=== PATIENT | female | born 1950 | race Caucasian/White ===

== ENCOUNTER 2017-11-21 12:46 | Emergency (ER) | payer MEDICARE, OTHER ==
[2017-11-21 12:57] VITALS: RESP 16
[2017-11-21 13:17] VITALS: O2SAT 98
--- NOTE | 2017-11-21 13:43 | ED PDOC ---
HPI: Back Time Seen by Provider: 11/21/17 13:18 Chief Complaint (Nursing): Shortness Of Breath Chief Complaint (Provider): Back pain History Per: Patient History/Exam Limitations: no limitations Onset/Duration Of Symptoms: Hrs (3am this morning) Current Symptoms Are (Timing): Still Present Quality Of Discomfort: "Pain" Previous Symptoms: None Associated Symptoms: None Exacerbating Factor(s): Movement, Other (deep breaths) Additional Complaint(s): Shantel Estrada is a 67 year old female, with a past medical history of diabetes and arthritis, who presents to the emergency department complaining of a constant back pain onset since 3am this morning. Patient states the pain worsens with deep breaths and movement. She denies similar symptoms in the past or heavy lifting. Patient doesn't work and denies any recent travel. She did not take pain medications. She denies any rash, leg pain or swelling. PMD: Leonid Schrader Past Medical History Reviewed: Historical Data, Nursing Documentation, Vital Signs Vital Signs: Last Vital Signs Temp 97.0 F L 11/21/17 12:54 Pulse 100 H 11/21/17 12:54 Resp 16 11/21/17 13:13 BP 135/68 11/21/17 12:54 Pulse Ox 98 11/21/17 13:13 - Medical History PMH: Arthritis, Diabetes, Gall Bladder Disease, HTN, Hypercholesterolemia, Hyperlipidemia Denies: Chronic Kidney Disease - Surgical History Surgical History: Cholecystectomy - Immunization History Hx Tetanus Toxoid Vaccination: No Hx Influenza Vaccination: Yes Hx Pneumococcal Vaccination: No - Home Medications Home Medications: Ambulatory Orders Medication Instructions Recorded Tizanidine Hydrochloride 4 mg PO Q6 PRN #20 tab 05/26/14 [Tizanidine HCl] traMADol [Ultram] 50 mg PO QID PRN #20 tab 05/26/14 diaZEpam [Valium] 5 mg PO Q6 PRN #10 tab 05/27/14 - Allergies Allergies/Adverse Reactions: Allergies Allergy/AdvReac Type Severity Reaction Status Date / Time No Known Allergies Allergy Verified 05/26/14 14:00 Review of Systems ROS Statement: Except As Marked, All Systems Reviewed And Found Negative Musculoskeletal: Positive for: Back Pain (worst with deep breaths and movement) . Negative for: Leg Pain (or swelling) Skin: Negative for: Rash Physical Exam - Reviewed Nursing Documentation Reviewed: Yes Vital Signs Reviewed: Yes - Physical Exam Appears: Positive for: Non-toxic Head Exam: Positive for: ATRAUMATIC, NORMAL INSPECTION, NORMOCEPHALIC Skin: Positive for: Normal Color, Warm, Dry Eye Exam: Positive for: Normal appearance Neck: Positive for: Painless ROM, Supple Cardiovascular/Chest: Positive for: Regular Rate, Rhythm. Negative for: Murmur Respiratory: Positive for: Normal Breath Sounds (clear b/l). Negative for: Respiratory Distress Gastrointestinal/Abdominal: Positive for: Normal Exam, Soft. Negative for: Tenderness, Guarding, Rebound Back: Positive for: Other (tender to palpation left upper back. No lesion.) Extremity: Positive for: Normal ROM. Negative for: Tenderness, Pedal Edema, Deformity, Swelling Neurologic/Psych: Positive for: Alert, Oriented. Negative for: Motor/Sensory Deficits - Laboratory Results Result Diagrams: 11/21/17 14:57 11/21/17 14:57 - ECG O2 Sat by Pulse Oximetry: 98 (RA) Pulse Ox Interpretation: Normal Medical Decision Making Medical Decision Making: Initial Impression: back pain Initial Plan: --EKG --CMP --CBC w/ differential --D Dimer --PTT --PT --Chest two views (PA/LAT) [RAD] --Urinalysis --Reevaluation 14:23 CXR FINDINGS: LUNGS: Minor bibasilar atelectasis. PLEURA: No significant pleural effusion identified. No pneumothorax apparent. CARDIOVASCULAR: Normal. OSSEOUS STRUCTURES: Mild multilevel degenerative spondylosis of the thoracic spine. VISUALIZED UPPER ABDOMEN: Metallic clips right upper quadrant of the abdomen consistent with prior cholecystectomy. OTHER FINDINGS: None. IMPRESSION: Minor bibasilar atelectasis. 16:30 --Patient will be signed out to Dr. Owens, pending repeat Troponin and CT angio chest Scribe Attestation: Documented by Mango Davalos, acting as a scribe for Violetta Clark MD Provider Scribe Attestation: All medical record entries made by the Scribe were at my direction and personally dictated by me. I have reviewed the chart and agree that the record accurately reflects my personal performance of the history, physical exam, medical decision making, and the department course for this patient. I have also personally directed, reviewed, and agree with the discharge instructions and disposition. Disposition - Disposition Forms: [employer] (French)
[2017-11-21 15:15] LABS: BASO % 0.4 % (0.0-2.0); EOS % 0.4 % (0.0-4.0); HEMOGLOBIN 12.7 g/dL (12.0-16.0); LYMPH % 35.5 % (20.0-40.0); MEAN CELL VOLUME 90.2 fl (81.0-99.0); MEAN CORPUSCULAR HEMOGLOBIN 29.8 pg (27.0-31.0); MEAN PLATELET VOLUME 9.3 fl (7.2-11.7); MONO # 0.4 K/uL (0.0-0.8); MONO % 5.1 % (0.0-10.0); NEUT % 58.6 % (50.0-75.0); RBC 4.25 Mil/uL (3.80-5.20); RED CELL DISTRIBUTION WIDTH 13.2 % (11.5-14.5); WHITE BLOOD COUNT 8.5 K/uL (4.8-10.8)
[2017-11-21 15:24] LABS: ALB/GLOB RATIO 1.5 (1.0-2.1); ALBUMIN 4.5 g/dL (3.5-5.0); ALT/SGPT 76 U/L (9-52); AST/SGOT 35 U/L (14-36); BLOOD UREA NITROGEN 15 mg/dl (7-17); CALCIUM 9.6 mg/dL (8.4-10.2); GFR AFRICAN-AMERICAN > 60; GFR NON-AFRICAN AMERICAN > 60
--- NOTE | 2017-11-21 15:24 | RAD ---
HISTORY: L upper back pain COMPARISON: Comparison made with chest radiograph 06/01/2014 TECHNIQUE: Chest PA and lateral FINDINGS: LUNGS: Minor bibasilar atelectasis. PLEURA: No significant pleural effusion identified. No pneumothorax apparent. CARDIOVASCULAR: Normal. OSSEOUS STRUCTURES: Mild multilevel degenerative spondylosis of the thoracic spine. VISUALIZED UPPER ABDOMEN: Metallic clips right upper quadrant of the abdomen consistent with prior cholecystectomy. OTHER FINDINGS: None. IMPRESSION: Minor bibasilar atelectasis.
[2017-11-21 15:29] LABS: SQUAMOUS EPITHIAL 1 /hpf (0-5); URINE BACTERIA RARE (<OCC); URINE BILIRUBIN NEGATIVE (NEGATIVE); URINE BLOOD SMALL (NEGATIVE); URINE CLARITY CLEAR (Clear); URINE COLOR STRAW (YELLOW); URINE GLUCOSE (UA) NEG (Normal); URINE LEUKOCYTE ESTERASE NEG Leu/uL (Negative); URINE NITRATE NEGATIVE (NEGATIVE); URINE PROTEIN NEGATIVE (NEGATIVE); URINE UROBILINOGEN 0.2-1.0 mg/dL (0.2-1.0)
[2017-11-21 15:57] LABS: PARTIAL THROMBOPLASTIN TIME 30.5 Seconds (25.6-37.1); PROTHROMBIN TIME 11.2 Seconds (9.8-13.1)
[2017-11-21] MEDS ORDERED: Iodixanol 320 MG/ML 100 ML BOTTLE IV ONE (18:46)
[2017-11-21] MEDS ORDERED: Sodium Chloride 0.9% 50 ML IV ONE (18:47)
--- NOTE | 2017-11-21 19:29 | CT ---
EXAM: CT Chest With Intravenous Contrast CLINICAL HISTORY: 67 years old, female; Pain; Chest pain; On breathing; Patient HX: Patients C/O of constant back pain onset since 3am this morning, patient states the pain is worse with deep breaths; Additional info: Chest pain/ back pain TECHNIQUE: Axial computed tomography images of the chest with intravenous contrast during the arterial phase of enhancement. All CT scans at this facility use one or more dose reduction techniques, viz.: automated exposure control; ma/kV adjustment per patient size (including targeted exams where dose is matched to indication; i.e. head); or iterative reconstruction technique. Coronal and sagittal reformatted images were created and reviewed. CONTRAST: 95 mL of VISIPAQUE 320 administered intravenously. COMPARISON: No relevant prior studies available. FINDINGS: Pulmonary arteries: No pulmonary embolism. Aorta: Minimal atherosclerotic disease. No aneurysm. Lungs: Minimal atelectasis. No consolidation. RIGHT upper lobe calcified granuloma. Pleural space: No significant effusion. No pneumothorax. Heart: No cardiomegaly. No significant pericardial effusion. Bones/joints: Mild degenerative changes of spine. No acute fracture. Soft tissues: Unremarkable. Lymph nodes: No pathologically enlarged lymph nodes. Gallbladder and bile ducts: Cholecystectomy. IMPRESSION: 1. No CT evidence of pulmonary embolism. 2. Incidental/non-acute findings are described above.
--- NOTE | 2017-11-21 20:19 | ED PDOC ---
- Laboratory Results Result Diagrams: 11/21/17 14:57 11/21/17 14:57 - ECG O2 Sat by Pulse Oximetry: 98 (RA) Medical Decision Making Medical Decision Making: recd 4pm pending CTA chest Accession No. 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 no. Patient Name: KUSH LU Pt. Address: [address] [place] [address] Rec #: [id number] [place] [address]: Román Owens DO, III Pt CELL Order Location: [facility] : 1950 Female Age: 67 Order #: [id number] Reason for exam: chest pain/ back pain CT Scan ANGIO CHEST PE PROTOCOL Exam Date: 11/21/17 This imaging exam was performed at [facility] ([facility]3] EXAM: CT Chest With Intravenous Contrast CLINICAL HISTORY: 67 years old, female; Pain; Chest pain; On breathing; Patient HX: Patients C/O of constant back pain onset since 3am this morning, patient states the pain is worse with deep breaths; Additional info: Chest pain/ back pain TECHNIQUE: Axial computed tomography images of the chest with intravenous contrast during the arterial phase of enhancement. All CT scans at this facility use one or more dose reduction techniques, viz.: automated exposure control; ma/kV adjustment per patient size (including targeted exams where dose is matched to indication; i.e. head); or iterative reconstruction technique. Coronal and sagittal reformatted images were created and reviewed. CONTRAST: 95 mL of VISIPAQUE 320 administered intravenously. COMPARISON: No relevant prior studies available. FINDINGS: Pulmonary arteries: No pulmonary embolism. Aorta: Minimal atherosclerotic disease. No aneurysm. Lungs: Minimal atelectasis. No consolidation. RIGHT upper lobe calcified granuloma. Pleural space: No significant effusion. No pneumothorax. Heart: No cardiomegaly. No significant pericardial effusion. Bones/joints: Mild degenerative changes of spine. No acute fracture. Soft tissues: Unremarkable. Lymph nodes: No pathologically enlarged lymph nodes. Gallbladder and bile ducts: Cholecystectomy. IMPRESSION: 1. No CT evidence of pulmonary embolism. 2. Incidental/non-acute findings are described above. Dictated By: Bryan Quintero MD Dictated Date/Time: 11/21/171928 Signed By: Bryan Quintero MD Date Signed: 1928 Transcribed By: DEVIKA Transcribe Date/Time : 11/21/171928 ACYP02/BASIL per lab trop added on to earlier bloodwork and negative, repeat 3hrs later remains neg Improved in ED s/p toradol and lidoderm patch. Better thoracic ROM. Disposition Counseled Patient/Family Regarding: Studies Performed, Diagnosis, Need For Followup, Rx Given - Clinical Impression Clinical Impression: Back pain - POA Present On Arrival: None - Disposition Referrals: Leonid Schrader [Staff Provider] - Disposition: Routine/Home Disposition Time: 20:40 Condition: STABLE Additional Instructions: Return to ER for any worse or new symptoms. Take medications as directed. Drink plenty of fluids. See Dr Schrader in 3-5 days for re-evaluation. Prescriptions: Ibuprofen [Motrin Tab] 600 mg PO Q6 PRN #15 tab PRN Reason: Pain, Moderate (4-7) Lidocaine 5% [Lidoderm] 1 ea TD DAILY PRN #4 patch PRN Reason: Other Instructions: Upper Back Pain Forms: [employer] (Armenian)
[2017-11-21] MEDS ORDERED: Lidocaine 5% Patch TD STA (20:26)
[2017-11-21] MEDS ORDERED: Lidocaine 5% Patch TD ONE (20:37)
[2017-11-21 22:41] VITALS: BP 122/84; PULSE 83; TEMP 98.2
--- NOTE | 2017-11-22 19:13 | CARD ---
APPROVED REPORT EKG Measurement Heart [id number] <Conclusion> Normal sinus rhythm Normal ECG
== END 2017-11-21 22:00 | disposition home or self-care (01) ==
LOC: H.ER 12:46
DX: M54.9 Dorsalgia, unspecified (principal); E11.9 Type 2 diabetes mellitus without complications; I10 Essential (primary) hypertension; E78.00 Pure hypercholesterolemia, unspecified
CPT/HCPCS: 71046; 71275; 80053; 81003; 82948; 84484; 85025; 85378; 85610; 85730; 93005; 96374; 99284; J1885; Q9967

== ENCOUNTER 2018-07-09 21:20 | Emergency (ER) | payer MEDICARE, OTHER ==
[2018-07-09 21:43] VITALS: RESP 16; O2SAT 99
[2018-07-09 23:40] LABS: SQUAMOUS EPITHIAL < 1 /hpf (0-5); URINE BACTERIA RARE (<OCC); URINE BILIRUBIN NEGATIVE (NEGATIVE); URINE BLOOD SMALL (NEGATIVE); URINE CLARITY CLEAR (Clear); URINE COLOR STRAW (YELLOW); URINE GLUCOSE (UA) NEG (Normal); URINE LEUKOCYTE ESTERASE NEG Leu/uL (Negative); URINE PROTEIN NEGATIVE (NEGATIVE); URINE UROBILINOGEN 0.2-1.0 mg/dL (0.2-1.0)
--- NOTE | 2018-07-10 00:06 | ED PDOC ---
HPI: Back Time Seen by Provider: 07/09/18 22:20 Chief Complaint (Nursing): Back Pain History Per: Patient, Family History/Exam Limitations: no limitations Onset/Duration Of Symptoms: Gradual Current Symptoms Are (Timing): Still Present Quality Of Discomfort: Dull, Aching Additional Complaint(s): Pt is a 67 year old Female who reports 2 month history of left sided lower back pain. She reports the left sided back pain is now wrapping around her flank into left lower abdomen. She denies fevers, n/v, urinary symptoms. No history of renal colic. Past Medical History Vital Signs: Last Vital Signs Temp 98.2 F 07/09/18 21:40 Pulse 75 07/09/18 21:40 Resp 16 07/09/18 21:40 BP 155/70 H 07/09/18 21:40 Pulse Ox 99 07/09/18 21:40 - Medical History PMH: Arthritis, Diabetes, Gall Bladder Disease, HTN, Hypercholesterolemia, Hyperlipidemia Denies: Chronic Kidney Disease - Surgical History Surgical History: Cholecystectomy - Family History Family History: States: Unknown Family Hx - Immunization History Hx Tetanus Toxoid Vaccination: No Hx Influenza Vaccination: Yes Hx Pneumococcal Vaccination: No - Home Medications Home Medications: Ambulatory Orders Medication Instructions Recorded Tizanidine Hydrochloride 4 mg PO Q6 PRN #20 tab 05/26/14 [Tizanidine HCl] traMADol [Ultram] 50 mg PO QID PRN #20 tab 05/26/14 diaZEpam [Valium] 5 mg PO Q6 PRN #10 tab 05/27/14 Ibuprofen [Motrin Tab] 600 mg PO Q6 PRN #15 tab 11/21/17 Lidocaine 5% [Lidoderm] 1 ea TD DAILY PRN #4 patch 11/21/17 - Allergies Allergies/Adverse Reactions: Allergies Allergy/AdvReac Type Severity Reaction Status Date / Time No Known Allergies Allergy Verified 05/26/14 14:00 Review of Systems Gastrointestinal: Positive for: Abdominal Pain Musculoskeletal: Positive for: Back Pain Physical Exam - Reviewed Vital Signs Reviewed: Yes - Physical Exam Appears: Positive for: Well Skin: Positive for: Normal Color Cardiovascular/Chest: Positive for: Regular Rate, Rhythm, Chest Non Tender Respiratory: Positive for: Normal Breath Sounds Gastrointestinal/Abdominal: Positive for: Tenderness (Mild suprapubic tenderness and LLQ abdominal tenderness. (+) mild left sided flank tenderness.) Back: Positive for: Normal Inspection, Other (left paralumbar tenderness, no midline tenderness.) Extremity: Positive for: Normal ROM Neurologic/Psych: Positive for: Alert. Negative for: Motor/Sensory Deficits - ECG O2 Sat by Pulse Oximetry: 99 Medical Decision Making Medical Decision Making: IM toradol given UA given. UA as above, (+) blood. Pt. with persistent left sided flank and lower abd tenderness. CT abd/pelvis ordered. Case endorsed to Sandip DANIELS, pending CT Disposition - Clinical Impression Clinical Impression: Chronic back pain, Abdominal pain - Patient ED Disposition Is Patient to be Admitted: Transfer of Care - Disposition Disposition: Transfer of Care Disposition Time: 00:11 Condition: STABLE Forms: [employer] (Micronesian) Patient Signed Over To: Vaishali Oropeza
--- NOTE | 2018-07-10 01:59 | ED PDOC ---
- ECG O2 Sat by Pulse Oximetry: 99 - Progress ED Course And Treament: Case endorsed to group underwriter from [facility] BRENNER pending CT USArad impression: mild constipation uncomplicated colonic diverticulosis prior cholecysectomy Patient educated on findings, discharged with rx ibuprofen, flexeril, lidoderm Advised follow up PMD within 2-3 days Return precautions given Disposition - Clinical Impression Clinical Impression: Chronic back pain, Abdominal pain - POA Present On Arrival: None - Disposition Disposition: Routine/Home Disposition Time: 02:00 Condition: IMPROVED Prescriptions: Cyclobenzaprine [Flexeril] 5 mg PO BID PRN #10 tab PRN Reason: Muscle Spasm Ibuprofen [Motrin Tab] 1 tab PO Q6 PRN #15 tab PRN Reason: Pain, Moderate (4-7) Lidocaine 5% [Lidoderm] 1 patch TOP DAILY #7 patch Instructions: Low Back Pain in Adults, Flank Pain Forms: [facility] (Italian) Print Language: YORUBA
[2018-07-10 02:33] VITALS: BP 142/84; PULSE 74; TEMP 98
--- NOTE | 2018-07-10 13:46 | CT ---
Date of service: 07/10/2018 PROCEDURE: CT Abdomen and Pelvis without intravenous contrast HISTORY: flank pain COMPARISON: Abdomen and pelvis CT with contrast 02/15/2014. TECHNIQUE: Helical CT of the abdomen and pelvis was performed without oral or intravenous contrast as per referring physician request. Coronal and sagittal reformats were generated. Contrast dose: None Radiation dose: Total exam DLP = 538.01 mGy-cm. This CT exam was performed using one or more of the following dose reduction techniques: Automated exposure control, adjustment of the mA and/or kV according to patient size, and/or use of iterative reconstruction technique. FINDINGS: LOWER THORAX: Unremarkable. LIVER: Unremarkable. No gross lesion or ductal dilatation. GALLBLADDER AND BILE DUCTS: Prior cholecystectomy reiterated. PANCREAS: Unremarkable. No gross lesion or ductal dilatation. SPLEEN: Unremarkable. ADRENALS: Unremarkable. No mass. KIDNEYS AND URETERS: No radiodense urolithiasis, perinephric fluid collection or obstructive uropathy is appreciate bilaterally. The bilateral ureters appear normal caliber overall. VASCULATURE: Unremarkable. No aortic aneurysm. BOWEL: Stomach is mildly distended with retained food. No bowel obstruction appreciated. Small bowel loops appear unremarkable. Moderate fecal retention through ascending and transverse large-bowel segments, mild at the remainder. APPENDIX: Unremarkable. Normal appendix. PERITONEUM: Unremarkable. No free fluid. No free air. LYMPH NODES: Unremarkable. No enlarged lymph nodes. BLADDER: Unremarkable. REPRODUCTIVE: Limited fibroid uterine changes suggested. No suspicious adnexal findings. BONES: No acute fracture. OTHER FINDINGS: None. IMPRESSION: No radiodense urolithiasis, perinephric fluid collection or obstructive uropathy is appreciate bilaterally. The bilateral ureters appear normal caliber overall. Prior cholecystectomy again evident. Nonacute sigmoid diverticulosis again evident. Fibroid uterine changes. Concordant preliminary report from [facility], 07/10/2018.
== END 2018-07-10 02:28 | disposition home or self-care (01) ==
LOC: H.ER 21:20
DX: M54.9 Dorsalgia, unspecified (principal); R10.9 Unspecified abdominal pain; K57.30 Diverticulosis of large intestine without perforation or abscess without bleeding; K59.00 Constipation, unspecified; E11.9 Type 2 diabetes mellitus without complications
CPT/HCPCS: 74176; 81003; 96372; 99284; J1885